=== PATIENT | female | born 2000 | race Caucasian/White ===

== ENCOUNTER 2021-04-16 21:45 | Observation (INO) | payer OTHER ==
[2021-04-16] MEDS ORDERED: EPINEPHrine 1:1,000 0.3 MG/0.3 ML SYR IM ONE (22:04)
[2021-04-16] MEDS ORDERED: methylPREDNISolone NA SUCC 125 MG/2 ML VIAL IVPUSH ONE (22:05)
[2021-04-16] MEDS ORDERED: FAMOTIDINE 20 MG/50 ML IVPB 20 MG/50 ML MG IVPB ONE ×2 (22:06→22:11)
[2021-04-16] MEDS ORDERED: methylPREDNISolone NA SUCC 125 MG/2 ML VIAL ONE (22:11)
[2021-04-16] MEDS ORDERED: EPINEPHrine/PF 1 MG/1 ML (1:1,000) AMPULE ONE (22:11)
[2021-04-16 22:36] LABS: BASO % 0.3 % (0-2.0); HEMATOCRIT 38.7 % (32.4-45.2); HEMOGLOBIN 12.9 GM/dL (10.7-15.3); MCH 26.4 pg (25.7-33.7); MCHC 33.4 g/dl (32.0-36.0); MEAN PLT VOLUME 10.2 fl (7.5-11.1); MONO % 4.6 % (3.8-10.2); NEUT % 88.1 % (42.8-82.8); PLATELET COUNT 193 10^3/uL (134-434); RDW 13.9 % (11.6-15.6)
[2021-04-16 22:57] LABS: CHLORIDE 103 mmol/L (98-107); SODIUM 137 mmol/L (136-145)
[2021-04-16 22:59] LABS: ALBUMIN 3.6 g/dl (3.4-5.0); ANION GAP 11 MMOL/L (8-16); BLOOD UREA NITROGEN 13.4 mg/dL (7-18); CALCIUM 9.2 mg/dL (8.5-10.1); CO2 23 mmol/L (21-32); GLUCOSE,RANDOM 109 mg/dL (74-106)
[2021-04-16 23:02] LABS: CREATININE 0.8 mg/dL (0.55-1.3); SGOT/AST 25 U/L (15-37); SGPT/ALT 23 U/L (13-61)
[2021-04-16 23:04] LABS: BILIRUBIN,TOTAL 0.8 mg/dL (0.2-1); TOT PROT 7.4 g/dl (6.4-8.2)
[2021-04-16 23:05] LABS: ALK PHOS 62 U/L (45-117)
[2021-04-17] MEDS ORDERED: hydrOXYzine PAMOATE 25 MG CAPSULE (FP) PO SCH (02:15)
[2021-04-17] MEDS ORDERED: BENZOYL PEROXIDE 5% 60 GM GEL..GRAM. TP ONE (03:05)
[2021-04-17] MEDS ORDERED: hydrOXYzine PAMOATE 25 MG CAPSULE (FP) PO ONE (03:31)
[2021-04-17] MEDS ORDERED: LACTATED RINGERS SOLUTION 1,000 ML/1,000 ML INFUS.BAG IV SCH (03:45)
[2021-04-17] MEDS ORDERED: POTASSIUM CHLORIDE TABS 20 MEQ TABLET.ER (FP) PO ONE (04:08)
[2021-04-17 04:29] VITALS: BMI 30.6
[2021-04-17 05:22] LABS: EPI CELLS 4 /uL (0-25.1); HYALINE CASTS 0 /uL (0-3.1); PH,URINE 6.5 (5.0-8.0); URINE APPEARANCE CLEAR; URINE BACTERIA 3 /uL (0-1359); URINE BILIRUBIN NEGATIVE (NEGATIVE); URINE COLOR ORANGE; URINE GLUCOSE (UA) NEGATIVE (NEGATIVE); URINE KETONE NEGATIVE (NEGATIVE); URINE LEUK ESTERASE NEGATIVE (NEGATIVE); URINE NITRITE NEGATIVE (NEGATIVE); URINE PROTEIN NEGATIVE (NEGATIVE); URINE RBC 3336 /uL (0-23.9); URINE WBC 13 /uL (0-25.8)
[2021-04-17] MEDS ORDERED: ACETAMINOPHEN 325 MG TABLET (FP) PO PRN (05:36)
[2021-04-17] MEDS ORDERED: PT OWN MED DRAWER 7, Y5N ONE (09:44)
[2021-04-17] MEDS: FAMOTIDINE 20 MG TABLET PO SCH (09:55)
[2021-04-17] MEDS: ENOXAPARIN NA (PORCINE) 40 MG/0.4 ML DISP.SYRIN SQ SCH (10:00)
[2021-04-17] MEDS ORDERED: methylPREDNISolone NA SUCC 40 MG/1 ML VIAL IVPUSH SCH (10:00)
[2021-04-17] MEDS ORDERED: methylPREDNISolone NA SUCC 125 MG/2 ML VIAL IVPUSH SCH (10:00)
[2021-04-17] MEDS ORDERED: LORATADINE 10 MG TABLET PO SCH (10:00)
[2021-04-17] MEDS: MINERAL OIL/PET HY-PHL TOPICAL OINTMENT 454 GM JAR TP SCH (11:59)
[2021-04-17] MEDS ORDERED: FAMOTIDINE 20 MG/50 ML IVPB 20 MG/50 ML MG IVPB ONE (13:34)
[2021-04-17] MEDS ORDERED: EPINEPHrine/PF 1 MG/1 ML (1:1,000) AMPULE IM ONE (13:34)
[2021-04-17] MEDS: diphenhydrAMINE HCL 25 MG CAPSULE (FP) PO SCH ×2 (13:46→19:25)
[2021-04-17] MEDS ORDERED: methylPREDNISolone NA SUCC 125 MG/2 ML VIAL IVPUSH ONE (14:00)
[2021-04-18] MEDS: diphenhydrAMINE HCL 25 MG CAPSULE (FP) PO SCH ×4 (01:14→18:33)
[2021-04-18] MEDS ORDERED: diphenhydrAMINE HCL 25 MG CAPSULE (FP) PO ONE (09:08)
[2021-04-18 09:43] LABS: BASO % 0.1 % (0-2.0); EOS % 0.1 % (0-4.5); HEMATOCRIT 37.7 % (32.4-45.2); HEMOGLOBIN 12.1 GM/dL (10.7-15.3); LYMPH % 12.3 % (8-40); MCH 25.8 pg (25.7-33.7); MEAN CELL VOLUME 80.5 fl (80-96); MEAN PLT VOLUME 10.3 fl (7.5-11.1); MONO % 6.4 % (3.8-10.2); NEUT % 81.1 % (42.8-82.8); PLATELET COUNT 203 10^3/uL (134-434); RBC 4.68 M/mm3 (3.60-5.2); RDW 14.8 % (11.6-15.6); WHITE BLOOD COUNT 12.8 K/mm3 (4.0-10.0)
[2021-04-18] MEDS: FAMOTIDINE 20 MG TABLET PO SCH (09:45)
[2021-04-18] MEDS: ENOXAPARIN NA (PORCINE) 40 MG/0.4 ML DISP.SYRIN SQ SCH (09:48)
[2021-04-18] MEDS: MINERAL OIL/PET HY-PHL TOPICAL OINTMENT 454 GM JAR TP SCH (09:49)
[2021-04-18] MEDS ORDERED: predniSONE 20 MG TABLET (UD) PO SCH (10:00)
[2021-04-18 10:08] LABS: ALBUMIN 3.5 g/dl (3.4-5.0)
[2021-04-18 10:09] LABS: MAGNESIUM 2.5 mg/dL (1.8-2.4)
[2021-04-18 10:11] LABS: CREATININE 0.6 mg/dL (0.55-1.3); PHOSPHOROUS 3.5 mg/dL (2.5-4.9)
[2021-04-18 10:13] LABS: BILIRUBIN,TOTAL 0.4 mg/dL (0.2-1); TOT PROT 7.2 g/dl (6.4-8.2)
[2021-04-18 16:03] VITALS: BP 119/49; PULSE 87; TEMP 97.9
[2021-04-19 15:07] LABS: PARV B19 IGG 0.1 index (0.0-0.8); PARV B19 IGM 0.1 index (0.0-0.8)
[2021-04-24 13:12] LABS: COMPLEMENT C1Q COMPONENT 9.3 ug Eq/mL (.)
== END 2021-04-18 21:18 | disposition home or self-care (01) ==
LOC: JER 21:45 → JERBED 23:22 → J8W 04-17 04:06
PROVIDERS: ADMIT Hospitalist; ATTEND Internal Medicine
PROC: 3E033NZ Introduction of Analgesics, Hypnotics, Sedatives into Peripheral Vein, Percutaneous Approach (ICD-10-PCS; principal; 2021-04-16)
PROC: 3E033GC Introduction of Other Therapeutic Substance into Peripheral Vein, Percutaneous Approach (ICD-10-PCS; 2021-04-16)
DX: L50.0 Allergic urticaria (principal); L29.9 Pruritus, unspecified; L70.0 Acne vulgaris; T78.2XXA Anaphylactic shock, unspecified, initial encounter; R94.31 Abnormal electrocardiogram [ECG] [EKG]; L53.9 Erythematous condition, unspecified
CPT/HCPCS: 36415; 80053; 81003; 83735; 84100; 84443; 84484; 84703; 85025; 85597; 85730; 86038; 86140; 86146; 86147; 86160; 86162; 86235; 86332; 86644; 86645; 86747; 86780; 87491; 87591; 93005; 93010; 96365; 96368; 96372; 96375; 96376; 99285-25; C9803; G0378; U0003; U0005